=== PATIENT | female | born 1940 | race Caucasian/White ===

== ENCOUNTER 2021-09-21 08:36 | Outpatient (CLI) | payer MEDICARE, OTHER | END 2021-09-21 08:37 | disposition home or self-care (01) | LOC: BICCT 08:36 | PROVIDERS: ATTEND Internal Medicine Critical Care Medicine | DX: R91.1 Solitary pulmonary nodule (principal); I71.4 Abdominal aortic aneurysm, without rupture; I70.0 Atherosclerosis of aorta; K57.30 Diverticulosis of large intestine without perforation or abscess without bleeding; K44.9 Diaphragmatic hernia without obstruction or gangrene | CPT/HCPCS: 71250 ==

== ENCOUNTER 2024-10-17 21:32 | Inpatient (IN) | payer MEDICARE, MEDICAID ==
[2024-10-18 02:27] VITALS: BMI 17.3
[2024-10-18] MEDS ORDERED: Ondansetron PF 4 MG/2 ML Vial IVP PRN (02:27)
[2024-10-18] MEDS: cefTRIAXone\\ROCEPHIN 1 GM in Sodium Chloride 0.9% 100 ML IVPB SCH (03:16)
[2024-10-18] MEDS: Acetaminophen 325 MG TAB PO PRN (03:16)
[2024-10-18] MEDS ORDERED: Ipratropium/Albuterol 3 ML NEB NEB PRN (03:29)
[2024-10-18] MEDS: Azithromycin 500 MG in Sodium Chloride 0.9% 250 ML 250 ML IVPB SCH (04:04)
[2024-10-18 05:56] LABS: #Basophils Less than 0.03 10x3/uL (0.0-0.2); #Eosinophils Less than 0.03 10x3/uL (0.0-0.7); %Basophils 0.1 % (0.0-1.0); %Lymphocytes 12.3 % (21.0-51.0); %Monocytes 10.6 % (0.0-10.0); %Neutrophils 76.9 % (42.0-75.0); Hematocrit 32.3 % (36.0-47.0); Hemoglobin 10.4 g/dL (12.0-16.0); Mean Corpuscular HGB CONC 32.2 g/dL (32.0-36.0); Mean Corpuscular Hemoglobin 29.2 pg (27.0-31.0); Mean Corpuscular Volume 90.7 fL (78.0-98.0); Mean Platelet Volume 9.4 fL (7.4-10.4); Platelet Count 233 10x3/uL (130-400); RBC Distribution Width 13.1 % (11.5-14.5); Red Blood Cell (RBC) Count 3.56 mill/uL (4.20-5.40)
[2024-10-18 06:32] LABS: Anion Gap 11 mmol/L (10-20); BUN (Urea Nitrogen) 23 mg/dL (9.8-20.1); Calc. Creatinine Clearance 34 mL/min (70-130); Calcium 8.1 mg/dL (7.8-10.44); Carbon Dioxide 24 mmol/L (23-31); Chloride 106 mmol/L (98-107); Estimated GFR 66; Glucose 94 mg/dL (83-110); Potassium 3.9 mmol/L (3.5-5.1); Sodium 137 mmol/L (136-145)
[2024-10-18] MEDS: Oseltamivir 75 MG CAP PO SCH (08:46)
[2024-10-18] MEDS: Ipratropium/Albuterol 3 ML NEB NEB SCH (12:09)
[2024-10-18 16:30] VITALS: BMI 17.3
[2024-10-18] MEDS: Sodium Chloride 0.9% 1,000 ML IV SCH (17:16)
[2024-10-18] MEDS: Oseltamivir 6 MG/ML ORAL SUSP PO SCH (20:31)
[2024-10-18] MEDS ORDERED: Senokot S 8.6-50 MG TAB PO PRN (21:23)
[2024-10-18] MEDS ORDERED: cloNIDine 0.1 MG TAB PO PRN (21:23)
[2024-10-18] MEDS: Benzonatate 100 MG CAP PO PRN (22:10)
[2024-10-18] MEDS: Mirtazapine 15 MG TAB PO SCH (22:10)
[2024-10-18] MEDS: Memantine 10 MG TAB PO SCH (22:10)
[2024-10-18] MEDS: Latanoprost 0.005% Ophth Soln 2.5 ml Bottle EA EYE SCH (22:11)
[2024-10-18] MEDS: Atorvastatin Calcium 10 MG TAB PO SCH (22:11)
[2024-10-19] MEDS: Hyoscyamine SL 0.125 MG TAB PO SCH (02:03)
[2024-10-19] MEDS: Melatonin 3 MG TAB PO PRN (02:03)
[2024-10-19] MEDS: Famotidine 20 MG TAB PO SCH (08:23)
[2024-10-19] MEDS: Memantine 10 MG TAB PO SCH (08:23)
[2024-10-19] MEDS: Sertraline 25 MG TAB PO SCH (08:23)
[2024-10-19] MEDS: Multivitamin W/ Minerals 1 TAB PO SCH (08:23)
[2024-10-19] MEDS: Amlodipine 5 MG TAB PO SCH (08:24)
[2024-10-19] MEDS: Timolol 0.5% Ophth Soln 5 ml Bottle EA EYE SCH (10:56)
[2024-10-19] MEDS: QUEtiapine 25 MG TAB PO SCH ×2 (10:56→21:05)
[2024-10-19] MEDS: Haloperidol Lactate 5 MG/ML VIAL IVPB SCH (15:19)
[2024-10-19] MEDS: Haloperidol Lactate 5 MG/ML VIAL IM SCH (15:21)
[2024-10-19] MEDS: Mirtazapine 15 MG TAB PO SCH (21:05)
[2024-10-19] MEDS: Atorvastatin Calcium 10 MG TAB PO SCH (21:05)
[2024-10-19] MEDS: Latanoprost 0.005% Ophth Soln 2.5 ml Bottle EA EYE SCH (21:08)
[2024-10-20 05:32] LABS: #Basophils 0.03 10x3/uL (0.0-0.2); %Basophils 0.3 % (0.0-1.0); %Eosinophils 0.3 % (0.0-10.0); %Lymphocytes 9.3 % (21.0-51.0); %Monocytes 8.3 % (0.0-10.0); %Neutrophils 81.6 % (42.0-75.0); Hemoglobin 11.2 g/dL (12.0-16.0); Mean Corpuscular Hemoglobin 29.2 pg (27.0-31.0); Mean Corpuscular Volume 91.4 fL (78.0-98.0); Mean Platelet Volume 9.9 fL (7.4-10.4); Platelet Count 252 10x3/uL (130-400); RBC Distribution Width 13.2 % (11.5-14.5); Red Blood Cell (RBC) Count 3.83 mill/uL (4.20-5.40)
[2024-10-20 06:21] LABS: ALT (SGPT) 17 U/L (8-55); AST (SGOT) 24 U/L (5-34); Albumin 2.8 g/dL (3.4-4.8); Alkaline Phosphatase 51 U/L (40-110); Anion Gap 14 mmol/L (10-20); BUN (Urea Nitrogen) 11 mg/dL (9.8-20.1); Bilirubin, Total 0.2 mg/dL (0.2-1.2); Calc. Creatinine Clearance 38 mL/min (70-130); Calcium 8.4 mg/dL (7.8-10.44); Carbon Dioxide 25 mmol/L (23-31); Chloride 108 mmol/L (98-107); Estimated GFR 77; Globulin 2.9 g/dL (2.4-3.5); Glucose 80 mg/dL (83-110); Magnesium 1.6 mg/dL (1.6-2.6); Potassium 3.6 mmol/L (3.5-5.1); Protein, Total 5.7 g/dL (5.8-8.1); Sodium 143 mmol/L (136-145)
[2024-10-21] MEDS: Enoxaparin 30 MG (0.3 mL) SYRINGE SC SCH (08:20)
[2024-10-21] MEDS ORDERED: Benzocaine/Menthol 1 LOZ LOZ PO PRN (14:08)
[2024-10-21] MEDS ORDERED: Moisturizing Cream (Eucerin) 113 GM JAR TOP PRN (14:08)
[2024-10-21] MEDS ORDERED: Artificial Tear Ophth Sol 15 ML BOT EA EYE PRN (14:08)
[2024-10-21] MEDS ORDERED: Loratadine 10 MG TAB PO PRN (14:08)
[2024-10-21] MEDS ORDERED: Sodium Chloride 0.65% Nasal 44 ML BOT EA NARE PRN (14:08)
[2024-10-22] MEDS: Furosemide 40 MG (4 mL) VIAL SLOW IVP SCH (13:38)
[2024-10-23] MEDS: Cefdinir 300 MG CAP PO SCH (09:38)
[2024-10-23] MEDS: Azithromycin 250 MG TAB PO SCH (09:39)
[2024-10-23 09:43] VITALS: TEMP 97.2
[2024-10-23 11:37] VITALS: BP 118/65
== END 2024-10-23 14:12 | DRG 193 ==
LOC: T4-B 10-18 02:02 → OBSVTOIN 10-18 14:57
PROVIDERS: ADMIT Family Medicine; ATTEND Family Medicine
DX: J10.1 Influenza due to other identified influenza virus with other respiratory manifestations (principal); G93.41 Metabolic encephalopathy; J10.00 Influenza due to other identified influenza virus with unspecified type of pneumonia; J15.9 Unspecified bacterial pneumonia; R33.9 Retention of urine, unspecified; E86.0 Dehydration; I10 Essential (primary) hypertension; H40.9 Unspecified glaucoma; E78.5 Hyperlipidemia, unspecified; G30.9 Alzheimer's disease, unspecified; F02.80 Dementia in other diseases classified elsewhere, unspecified severity, without behavioral disturbance, psychotic disturbance, mood disturbance, and anxiety; E03.9 Hypothyroidism, unspecified; Z66 Do not resuscitate; Z86.73 Personal history of transient ischemic attack (TIA), and cerebral infarction without residual deficits
CPT/HCPCS: 36415; 71045; 80048; 80053; 83735; 85025; 94640; 96374; 96375; G0378; J0456; J0696; J1630; J1650; J1940; J7030; J7050; J7620